=== PATIENT | male | born 1970 | race Caucasian/White ===

== ENCOUNTER → 2020-09-13 13:54 | Outpatient (CLI) | payer OTHER, SELFPAY ==
--- NOTE | ~2020-09-13 | CT_ITS ---
EXAMINATION: CT abdomen pelvis w con DATE: 09/13/2020 14:27 INDICATION: Left lower quadrant abdominal pain TECHNIQUE: Computed tomography (CT) of the abdomen and pelvis was performed with 100 cc Omnipaque 350 intravenous contrast. Automated exposure control and iterative reconstruction technique were employe d. Exam dose: 443.40 mGy-cm total exam DLP. COMPARISON: None. FINDINGS: The lung bases are clear of infiltrate or consolidation. Normal heart size. No pericardial or pleural effusion. The liver, gallbladder, bile ducts, spleen, pancreas, pancreatic duct, and adrenal glands and kidneys are unremarkable. No urinary tract calculus or hydroureteronephrosis. Normal caliber of the abdominal aorta. No intraperitoneal or retroperitoneal or pelvic mass lesion or adenopathy or ascites. Normal appendix. There are multiple diverticula of the left colon primarily, particularly the sigmoid area; no CT evid ence of diverticulitis. The urinary bladder and prostate gland are unremarkable. There is mild to moderate anterior wedging of the first lumbar vertebral body, which appears to be ch ronic, likely due to old compression fracture. IMPRESSION: Diverticulosis of the colon; no CT evidence of diverticulitis Reviewed, dictated and finalized at [facility]. Reviewed, dictated and finalized at location [facility].
== END ==
PROVIDERS: PCP Family Medicine; Visit Provider Family Medicine
DX: K57.30 Diverticulosis of large intestine without perforation or abscess without bleeding (principal)
CPT/HCPCS: 74177; Q9967

== ENCOUNTER 2024-04-17 13:02 | Emergency (ER) | payer BC, SELFPAY ==
--- NOTE | ~2024-04-17 | US_ITS ---
EXAMINATION: US scrotum doppler DATE: 04/17/2024 14:25 INDICATION: pain, swelling . TECHNIQUE: Grayscale and Doppler ultrasound images of the testes were obtained. COMPARISON: None. FINDINGS: The right testis measures 3.6 x 2.1 x 3.0 cm. The left testis measures 3.4 x 1.9 x 2.5 is c m. No testicular mass. Scattered bilateral punctate echogenicities in the testicular parenchyma. Ther e is normal vascular flow to both testes. The right epididymis is normal with normal vascular flow an d contains a small cyst. The left epididymis is normal with normal vascular flow. There are several d ebris-filled, thin-walled, circumscribed, cystic areas adjacent to the left epididymis without international organizer al vascular flow, measuring up to 2.8 cm. There is no varicocele or hydrocele. IMPRESSION: Multiple debris-filled cysts associated with the left epididymis, likely epidermal cyst. Or spermatoc eles, the largest measuring 2.8 cm. Testicular microlithiasis. Reviewed, dictated and finalized at location [facility]. [facility] CELL[employer] IMPRESSION: Multiple debris-filled cysts associated with the left epididymis, likely epider mal cyst. Or spermatoceles, the largest measuring 2.8 cm. Testicular microlithi asis.
[2024-04-17 13:06] VITALS: BP 181/116; PULSE 86; RESP 20; TEMP 36.9; O2SAT 99
--- NOTE | 2024-04-17 14:40 | ED.MALEGU ---
HPI - Male Genitourinary General Chief complaint: Urogenital-Male Stated complaint: testicular pain Time Seen by Provider: 04/17/24 13:58 History of Present Illness HPI Narrative: Patient is a 54-year-old male who presents to the ER with 1 week of testicular swelling. He endorses mild, dull pain that intermittently radiates to his left abdomen. Patient denies any urinary symptoms including burning, urgency, fevers. He reports he 1st noticed the edema about a week ago and reports it feels like I have a 3rd testicle. Patient denies any medical history besides recent constipation. He reports he does have a primary care provider but has not seen him recently. Related Data Home Medications ?Medication ?Instructions ?Recorded ?Confirmed ?Last Taken ?Type No Home Medications 07/26/20 07/26/20 Unknown History Allergies Allergy/AdvReac Type Severity Reaction Status Date / Time No Known Allergies Allergy Verified 04/17/24 13:14 Review of Systems Review of Systems: All systems reviewed & are unremarkable except as noted in HPI and below PMFSH Past Medical History Medical History Screen for colon cancer Screening for prostate cancer Screening for lipid disorders LLQ abdominal pain Allergies Surgical History Surgical History History of hernia repair Family History Family History Other Alcoholism Hypertension Lung cancer Social History Social History Smoking status: Never smoker Alcohol intake: never Exam Narrative: GENERAL: Well appearing, well-nourished, non-toxic, in mild distress d/t anxiety. HEAD: Normocephalic, atraumatic. NECK: Supple. No adenopathy, no masses. RESPIRATORY: Airway patent, respirations nonlabored. Clear to auscultation bilaterally, no rales, rhonchi, wheezing. CARDIOVASCULAR: Regular rate and rhythm without murmurs, rubs, or gallops. Peripheral pulses 2+ and equal bilaterally. ABDOMINAL: Soft, nontender, nondistended, no hepatosplenomegaly. Normoactive BS. MUSCULOSKELETAL: Moves all extremities. Strength/ROM intact without gross deformities. SKIN: Warm, dry, normal color. No rashes. NEURO: A&O X3. Speech clear. Cranial nerves II-XII grossly intact. Steady gait. No ataxic movements. PSYCHIATRIC: Appropriate mood and affect. Normal interaction. Course Vital Signs Vital signs: Vital Signs Temperature 36.9 C 04/17/24 13:06 Pulse Rate 86 04/17/24 13:06 Respiratory Rate 20 04/17/24 13:06 Blood Pressure 181/116 H 04/17/24 13:06 Pulse Oximetry 99 04/17/24 13:06 Oxygen Delivery Room Air 04/17/24 13:06 Temperature 36.9 C 04/17/24 13:06 Pulse Rate 86 04/17/24 13:06 Respiratory Rate 20 04/17/24 13:06 Blood Pressure 181/116 H 04/17/24 13:06 Pulse Oximetry 99 04/17/24 13:06 Oxygen Delivery Room Air 04/17/24 13:06 MDM - Male Genitourinary MDM Narrative Medical decision making narrative: Patient is a 54-year-old male who presents to the ER with 1 week of testicular swelling. He endorses mild, dull pain that intermittently radiates to his left abdomen. Patient denies any urinary symptoms including burning, urgency, fevers. He reports he 1st noticed the edema about a week ago and reports it feels like I have a 3rd testicle. Patient denies any medical history besides recent constipation. He reports he does have a primary care provider but has not seen him recently. Labs Ordered: urinalysis, chlamydia/gonorrhea urine Imaging Ordered: US scrotum Doppler Results: The right testis measures 3.6 x 2.1 x 3.0 cm. The left testis measures 3.4 x 1.9 x 2.5 is cm. No testicular mass. Scattered bilateral punctate echogenicities in the testicular parenchyma. There is normal vascular flow to both testes. The right epididymis is normal with normal vascular flow and contains a small cyst. The left epididymis is normal with normal vascular flow. There are several debris-filled, thin-walled, circumscribed, cystic areas adjacent to the left epididymis without internal vascular flow, measuring up to 2.8 cm. There is no varicocele or hydrocele. Diagnosis: Epididymis Consults: None needed Patient Education/Shared MDM: Results shared with the patient. Patient will be given Rocephin IM and a dose of Doxycycline PO here in the ER and sent home with a prescription for doxycycline. A urine culture will be collected prior to patient being discharged. He should follow up with his primary care provider in the next couple of days to ensure improvement. Patient and his are in agreement with current treatment plan. All questions answered. Vital signs stable at time of discharge. Differential Diagnosis Differential diagnosis: Likely urinary tract infection, urethritis, epididymitis, prostatitis and inguinal hernia Imaging Data Attestation: I personally reviewed and interpreted this imaging study as follows: Radiologist's impression: Impressions Scrotum Ultrasound 04/17/24 14:35 IMPRESSION: Multiple debris-filled cysts associated with the left epididymis, likely epidermal cyst. Or spermatoceles, the largest measuring 2.8 cm. Testicular microlithiasis. Discharge Plan Discharge Clinical Impression: Epididymitis Patient Disposition: Home, Self-Care Condition: Stable Instructions: Antibiotic Form, Epididymitis (ED) Additional Instructions: Please return to the ER with an worsening symptoms. Follow-up with primary care provider in the next 2-3 days. Take all medications as prescribed. Patient Language: Maltese Prescriptions: No Action No Home Medications Follow-up/Referrals: Kaushik Whaley MD [Primary Care Provider] - Time of Disposition: 16:22
[2024-04-17 16:30] VITALS: BP 143/103; PULSE 98; RESP 16; O2SAT 98
[2024-04-17] MEDS: cefTRIAXone 1 GM VIAL 0.5 GM IM (16:32)
[2024-04-17] MEDS: DOXYCYCLINE HYCLATE 100 MG TABLET PO (16:32)
[2024-04-17 16:48] LABS: Add Urine Microscopic? YES; Appearance Urine Clear (Clear); Bacteria Urine None Seen /hpf; Bilirubin Urine Negative (Negative); Blood Urine Trace (Negative); Color Urine Yellow (Yellow); Glucose Urine UA Negative (Negative); Ketones Urine 2+ mg/dL (Negative); Leukocyte Esterase Ur Negative LEU/UL (Negative); Nitrate Urine Negative (Negative); Non Pathogenic Casts 0-2; Protein Urine Negative (Negative); Specific Grav Ur 1.021 (1.001-1.035); Squamous Epithelial Cell Urine None Seen /hpf (Few); WBC Urine 0-5 /hpf (0-3)
[2024-04-17 17:03] VITALS: BP 151/105; PULSE 80; RESP 16; TEMP 36.8; O2SAT 98
[2024-04-17 18:11] LABS: Chlamydia trachomatis NOT DETECTED (NOT DETECTE); Neisseria gonorrhoeae PCR NOT DETECTED (NOT DETECTE)
--- OUTSIDE RECORDS SUMMARY | 2024-04-22 06:09 | XMS_ITS | Continuity of Care Document ---
Author Organization [facility] Address [address] [place] [address] [place] [address] Phone Care Team Providers Care Contract Paralegal Name Role Phone Dereck Rojas MD Unavailable Unavailable Allergies, Adverse Reactions, Alerts Substance Reaction Status Criticality No Known Allergies Active No Inform ation Medications Medication Instructions Dosage Effective Dates (start - stop) Status Comments [place] 10 mg-325 mg tablet take 1 by Oral route 3 times every day as needed 1 - Active avoid driving or operate machines Procedures Procedure Date OFFICE/OUTPATIENT VISIT, [facility] Advance Directives Directive Yes / No Effective Date File Name No Information Encounters Encounter Description Practice Location Reason(s) For Visit Diagnoses Date Provider Providers Copied on Encounter OFFICE/OUTPAT IENT VISIT, [facility], [address] [place], [address], tel:[phone] [facility] neck pain (chief complaint) Cervicalgia Bob Harden. [address] [facility] [place], [address]. tel:[phone] Family History Family Member Type Diagnosis Age At Onset No Information Payers Payer name Insurance type Covered green party ID Authoriza tion(s) No Information Social History [...] And Reason For Visit From encounter dated '11/28/2013 12:00'. neck pain (chief complaint) Plan Of Treatment Date Type Action Status No Information History Of Present Illness Encounter Date Complaint History Of Prese nt Illness No Information Instructions Date Instruction Additional Infor mation No Information Assessments Type Assessment Date No Information Mental Status Date Cognitive Assessment Orientation - [place] ed to time, place, person, situation.
--- OUTSIDE RECORDS SUMMARY | 2024-04-22 08:20 | XMS_ITS | Continuity of Care Document ---
Author Organization [facility] Address [address] [place] [address] [place] [address] Phone Care Team Providers Care Glass Washer Name Role Phone Dereck Rojas MD Unavailable Unavailable Allergies, Adverse Reactions, Alerts Substance Reaction Status Criticality No Known Allergies Active No Inform ation Medications Medication Instructions Dosage Effective Dates (start - stop) Status Comments [place] 10 mg-325 mg tablet take 1 by Oral route 3 times every day as needed 1 - Active avoid driving or operate machines Procedures Procedure Date OFFICE/OUTPATIENT VISIT, [facility] Advance Directives Directive Yes / No Effective Date File Name No Information Encounters Encounter Description Practice Location Reason(s) For Visit Diagnoses Date Provider Providers Copied on Encounter OFFICE/OUTPAT IENT VISIT, [facility], [address] [place], [address], tel:[phone] [facility] neck pain (chief complaint) Cervicalgia Bob Harden. [address] [facility], [address]. tel:[phone] Family History Family Member Type Diagnosis Age At Onset No Information Payers Payer name Insurance type Covered alliance party ID Authoriza tion(s) No Information Social [...] Mental Status Date Cognitive Assessment Orientation - [place] ed to time, place, person, situation.
== END 2024-04-17 17:05 | disposition home or self-care (01) ==
PROVIDERS: Emergency Provider Registered Nurse; PCP Family Medicine
DX: N45.1 Epididymitis (principal)
CPT/HCPCS: 76870; 81001; 87491; 87591; 93976; 96372; 99284; A9270; J0696; J2003

== ENCOUNTER 2024-12-20 01:12 | Day surgery (SDC) | payer BC, SELFPAY ==
[2024-12-16 13:04] VITALS: BMI 25.1
--- OUTSIDE RECORDS SUMMARY | 2024-12-20 01:14 | XMS_ITS | Clinical Summary ---
Author Organization [facility] [employer] [facility] Address [address] [place] [address] Care Team Providers Care [place] Records Management Officer Name Role Phone Unavailable Primary Care Provider Unavailabl e Encounters Date Type Department Care Team Description 10/25/2024 External Device Data [facility] ABSTRACTION Provider, Abstract 09/20/2024 External Device Data [facility] ABSTRACTION Provider, Abstract from Last 3 Months Social History Tobacco Use Types Packs/Day Years Used Date Smoking Tobacco: Never Assessed Sex and Gender Information Value Date Recorded Sex Assigned at Not on file 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
--- OUTSIDE RECORDS SUMMARY | 2024-12-20 01:15 | XMS_ITS | Continuity of Care Document ---
Author Organization [facility] Address [address] [place] [address] [place] [address] Phone Care Team Providers Care Sleeve Machine Tender Name Role Phone Dereck Rojas MD Unavailable Unavailable Allergies, Adverse Reactions, Alerts Substance Reaction Status Criticality No Known Allergies Active No Inform ation Medications Medication Instructions Dosage Effective Dates (start - stop) Status Comments [place] 10 mg-325 mg tablet take 1 by Oral route 3 times every day as needed 1 - Active avoid driving or operate machines Procedures Procedure Date OFFICE/OUTPATIENT VISIT, [facility] Advance Directives Directive Yes / No Effective Date File Name No Information Encounters Encounter Description Practice Location Reason(s) For Visit Diagnoses Date Provider Providers Copied on Encounter OFFICE/OUTPAT IENT VISIT, [facility], [address] [place], [id number], tel:[phone] [facility] neck pain (chief complaint) Cervicalgia Bob Harden. [address] [employer] [place], [id number], [place]. tel:[phone] Family History Family Member Type Diagnosis Age At Onset No Information Payers Payer name Insurance type Covered libertarian ID Authoriza tion(s) No Information Social History [...] Mental Status Date Cognitive Assessment Orientation - [place] ed to time, place, person, situation.
[2024-12-20 07:59] VITALS: BP 177/100; PULSE 79; RESP 16; TEMP 35.8; O2SAT 100
--- NOTE | 2024-12-20 08:02 | WPDANESEPPF ---
Anes - Initial Pre Proc Eval Procedure: Operation Date: 12/20/24 09:00 Proposed Procedures p Screening Colonoscopy - Stephen Reynolds DO Date/Time: 12/20/24 08:02 Surgeon: Stephen Reynolds DO Pre Op Diagnosis: Neoplasm screening Patient Data Age: 54 Gender: M Height: 1.73 m Weight: 74.2 kg Last Vital Signs Temp 35.8 C L 12/20/24 07:59 Pulse 79 12/20/24 07:59 Resp 16 12/20/24 07:59 BP 177/100 H 12/20/24 07:59 Pulse Ox 100 12/20/24 07:59 O2 Del Method Room Air 12/20/24 07:59 Allergies Allergy/AdvReac Type Severity Reaction Status Date / Time No Known Allergies Allergy Verified 12/20/24 07:58 Home Medications ?Medication ?Instructions ?Recorded ?Confirmed ?Type No Home Medications 12/16/24 12/20/24 History sodium,potassium,mag sulfates 17.5 See Rx Instructions PO .COMPLEX 12/16/24 Rx gram-3.13 gram-1.6 gram oral soln #354 mL (Suprep Bowel Prep Kit) Patient hx anesthesia problems: none Family hx anesthesia problems: none Results Review: All pre-operative results and documents have been reviewed as part of the pre-operative evaluation. [facility] Past Medical History Medical History (Updated 05/17/24 @ 13:26 by Tejal Izquierdo APRN) Epididymitis, left Prostatitis Microhematuria Hematuria Screen for colon cancer Screening for prostate cancer Screening for lipid disorders LLQ abdominal pain Allergies Surgical History Surgical History History of hernia repair Family History Family History Other Alcoholism Hypertension Lung cancer Social History Social History Smoking status: Never smoker Alcohol intake: never Substance use: never Substance use type: does not use Living arrangements: with family Spiritual care concerns: No Anes - Eval Final PreProcedure Day of Procedure 12/20/24 08:02 Patient weight: normal Heart: regular rate and rhythm Lungs: clear to auscultation and normal air movement Airway: Mallampati scale class 1 Neurological: alert and oriented Last oral intake: >/= 8 hours ASA classification: II Emergent: no Anesthetic plan: proceed Anesthesia type and monitoring: general GIVS and standard monitoring Results Review: All pre-operative results and documents have been reviewed as part of the pre-operative evaluation. Informed Consent: The patient's anesthetic plan and its attendant risks and benefits were discussed with the patient/family/POA. Questions were solicited and answers provided to the satisfaction of the patient/family/POA.
[2024-12-20] MEDS: LACTATED RINGERS 1,000 ML 150 ML IV CONT (08:08)
--- NOTE | 2024-12-20 08:31 | P.HP_ITS ---
H&P: HPI History of Present Illness Date/Time: 12/20/24 08:31 Chief Complaint: screening for colorectal cancer Narrative: this is a 54-year-old man who presents for colonoscopy. He has never had a colonoscopy before. He denies family history of colon cancer. He denies hematochezia or melena. Review of Systems Review of Systems: All systems reviewed & are unremarkable except as noted in HPI and below Constitutional: Constitutional: Denies chills, Denies fever(s), Denies headache(s) and Denies weight loss Eyes: Eyes: Denies change in vision ENT: Denies dizziness, Denies headache(s), Denies neck mass and Denies throat swelling Cardiovascular: Cardiovascular: Denies chest pain, Denies lightheadedness and Denies dyspnea Respiratory: Respiratory: Denies cough, Denies dyspnea and Denies wheezing Gastrointestinal: Gastrointestinal: Denies abdominal pain, Denies change in bowel habits, Denies nausea and Denies vomiting Genitourinary: Genitourinary: Denies hematuria and Denies dysuria Musculoskeletal: Musculoskeletal: Reports as per HPI Integumentary/Breasts: Skin/Breast: Reports as per HPI Neurologic: Denies dizziness and Denies headache(s) Allergic/Immunologic: Allergic/Immunologic: Denies throat swelling and Denies wheezing [facility] Past Medical History Medical History (Updated 05/17/24 @ 13:26 by Tejal Izquierdo APRN) Epididymitis, left Prostatitis Microhematuria Hematuria Screen for colon cancer Screening for prostate cancer Screening for lipid disorders LLQ abdominal pain Allergies Surgical History Surgical History History of hernia repair Family History Family History Other Alcoholism Hypertension Lung cancer Social History Social History Smoking status: Never smoker Alcohol intake: never Substance use: never Substance use type: does not use Living arrangements: with family Spiritual care concerns: No Meds Home Medications and Allergies Home Medications ?Medication ?Instructions ?Recorded ?Confirmed ?Type No Home Medications 12/16/24 12/20/24 H istory sodium,potassium,mag sulfates 17.5 See Rx Instructions PO .COMPLEX 12/16/24 Rx gram-3.13 gram-1.6 gram oral soln #354 mL (Suprep Bowel Prep Kit) Allergies Allergy/AdvReac Type Severity Reaction Status Date / Time No Known Allergies Allergy Verified 12/20/24 07:58 Vital Signs Vital Signs - 24 hr 12/20/24 07:59 Temperature 96.4 F L Pulse Rate 79 Respiratory Rate 16 Blood Pressure 177/100 H Pulse Oximetry 100 Oxygen Delivery Room Air Exam Const: General: no acute distress and alert Orientation/consciousness: patient oriented x3 HENMT: Head: normocephalic and atraumatic Ears: hearing grossly normal bilaterally Face/Nose/Sinus: Normal nares present Mouth: Yes Normal oral and palatal mucosa present Eyes: Periorbital: periorbital findings normal Sclera: sclerae normal EOM: EOMs intact bilaterally Neck: Neck: normal visual inspection, no lymphadenopathy and trachea midline Chest: Chest palpation & inspection: normal inspection of the chest Resp: Effort & Inspection: normal respiratory effort Auscultation: clear to auscultation bilaterally Cardio: Jugular venous distension: no JVD Rate: regular rate Rhythm: regular rhythm Heart sounds: S1 normal heart sound present and S2 normal heart sound present Peripheral pulses: Peripheral pulses 2+ throughout GI: Inspection: normal to inspection GI Palp: Yes Soft to palpation, No Tenderness to palpation present (GI), No Guarding due to palpation present (GI) and No Rebound tenderness present Percussion: Yes normal to percussion Auscultation: normal bowel sounds : General: Yes no CVA tenderness Back/Spine/Pelvis: Back: no CVA tenderness Neuro: General: patient oriented x3, no focal motor deficits and CN's II-XI i ntact bilaterally Cognition (Neuro): normal cognition Speech: normal speech Motor exam (neuro): 5/5 motor strength present throughout Extrem: General: capillary refill normal and no clubbing, cyanosis or edema Assessment and Plan Assessment and plan (1) Screen for colon cancer: Code(s): Z12.11 - Encounter for screening for malignant neoplasm of colon Status: Acute Assessment and Plan: I have recommended colonoscopy. I have discussed the procedure, risks, benefits, and alternatives. Questions were answered. Patient is agreeable to proceed.
[2024-12-20 08:44] VITALS: BP 118/82; PULSE 75; RESP 17; O2SAT 98
[2024-12-20 08:54] VITALS: BP 125/85; PULSE 76; RESP 19; O2SAT 99
[2024-12-20 09:04] VITALS: BP 134/90; PULSE 68; RESP 17; O2SAT 99
== END 2024-12-20 09:14 | disposition home or self-care (01) ==
PROVIDERS: PCP Family Medicine; Visit Provider Surgery
PROC: 0DJD8ZZ Inspection of Lower Intestinal Tract, Via Natural or Artificial Opening Endoscopic (ICD-10-PCS; CPT 45378; principal; 2024-12-20 09:00)
DX: Z12.11 Encounter for screening for malignant neoplasm of colon (principal); K57.30 Diverticulosis of large intestine without perforation or abscess without bleeding; Z98.890 Other specified postprocedural states; Z80.1 Family history of malignant neoplasm of trachea, bronchus and lung
CPT/HCPCS: 45378; J2003; J2704; J7120

== ENCOUNTER 2025-01-03 09:00 | Outpatient (CLI) | payer BC, SELFPAY ==
--- OUTSIDE RECORDS SUMMARY | 2013-11-28 07:00 | XMS_ITS | Continuity of Care Document ---
Author Organization [facility] Address [address] [place] [address] [place] [address] Phone Care Team Providers Care Ethnoarchaeologist Name Role Phone Dereck Rojas MD Unavailable Unavailable Allergies, Adverse Reactions, Alerts Substance Reaction Status Criticality No Known Allergies Active No Inform ation Medications Medication Instructions Dosage Effective Dates (start - stop) Status Comments [place] 10 mg-325 mg tablet take 1 by Oral route 3 times every day as needed 1 - Active avoid driving or operate machines Procedures Procedure Date OFFICE/OUTPATIENT VISIT, [facility] Advance Directives Directive Yes / No Effective Date File Name No Information Encounters Encounter Description Practice Location Reason(s) For Visit Diagnoses Date Provider Providers Copied on Encounter OFFICE/OUTPAT IENT VISIT, [facility], [address] [place], [place], [id number], tel:[phone] [facility] neck pain (chief complaint) Cervicalgia Bob Harden. [address] [place], [id number], [place]. tel:[phone] Family History Family Member Type Diagnosis Age At Onset No Information Payers Payer name Insurance type Covered republican ID Authoriza tion(s) No Information Social History Type Description Quantity Date Captured Comments Alcohol Use Details No Caffeine Use Details Unknown Tobacco Use Status No Information Smoking Status Never smoker Non-Smoking Tobacco Use Details : No Details Available : No Details Available Sex Male Vital Signs Date / Time: Height Weight BMI Pulse Rate Blood Pressure Temperature Respiratory Rate Body Surface Area Head Circumference BMI percentile Pulse Ox Inhaled Ox 12:09 PM 67.00 in 162.00 lbs 25.3 7 kg/m eter (2) 72 /min 133/92 mm[Hg] 96.2 F 18 /min Chief Complaint And Reason For Visit From encounter dated 11/28/2013 12:00'. neck pain (chief complaint) Plan Of Treatment Date Type Action Status No Information History Of Present Illness Encounter Date Complaint History Of Prese nt Illness No Information Instructions Date Instruction Additional Infor mation No Information Assessments Type Assessment Date No Information Mental Status Date Cognitive Assessment Orientation - [place] ed to time, place, person, situation.
--- OUTSIDE RECORDS SUMMARY | 2025-01-03 09:14 | XMS_ITS | Clinical Summary ---
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
[2025-01-03 10:20] LABS: Anion Gap 8 mmol/L (4-12); Blood Urea Nitrogen 20 mg/dL (9-20); Calcium 9.2 mg/dL (8.4-10.2); Carbon Dioxide 27 mmol/L (22-30); Chloride 103 mmol/L (98-107); Cholesterol 147 mg/dL (0-200); Estimated Glomerular Filt Rate > 60; Glucose 109 mg/dL (65-110); HDL Direct 40 mg/dL; Potassium 4.5 mmol/L (3.4-5.0); Sodium 138 mmol/L (137-145); Triglycerides 122 mg/dL (<150)
[2025-01-03 10:56] LABS: Prostate Specific Antigen 0.9 ng/mL (< OR = 4.0); Thyroid Stimulating Hormone 0.700 uIU/mL (0.465-4.680)
== END 2025-01-03 09:01 | disposition home or self-care (01) ==
LOC: ANHLAB 09:02
PROVIDERS: PCP Family Medicine; Visit Provider Nurse Practitioner Family
DX: Z13.220 Encounter for screening for lipoid disorders (principal); Z12.5 Encounter for screening for malignant neoplasm of prostate; Z13.29 Encounter for screening for other suspected endocrine disorder
CPT/HCPCS: 36415; 80048; 80061; 84153; 84443; G0103